=== PATIENT | female | born 1945 | race Caucasian/White ===

== ENCOUNTER → 2018-05-03 | Outpatient (CLI) | payer MEDICARE, BC ==
--- NOTE | 2018-05-03 13:34 | RAD ---
EXAM: NUCLEAR GASTRIC EMPTYING SCAN. HISTORY: Abdominal pain, gastroesophageal reflux. COMPARISON: None. TECHNIQUE: Scintigraphic images were obtained over the stomach following oral administration of 2.0 mCi of 99m-Tc sulfur colloid in an egg based meal. FINDINGS: The stomach appears normal in contour. There is clearance of activity into the small bowel. The remaining fraction of gastric activity is as follows. 1 hour 66.7% (normal range 34.8-91%) 2 hour 37.5% (normal range 2.7-60%) 3 hour 8.4% (normal range 0.5-28%) 4 hour <10% (normal range 0-10%). The reported value of 9.8% is spurious from adjacent contamination. IMPRESSION: 1. Normal gastric emptying. Electronically signed by: Lima Myers MD (05/03/2018 1:30 PM) [facility]
== END | disposition home or self-care (01) ==
LOC: NM 08:30 → EDBD 09:00
PROVIDERS: ATTEND Internal Medicine Gastroenterology
DX: R12 Heartburn (principal); K21.9 Gastro-esophageal reflux disease without esophagitis
CPT/HCPCS: 78264; A9541